=== PATIENT | male | born 1995 | race Caucasian/White ===

== ENCOUNTER → 2017-10-06 | Outpatient (CLI) | payer BC ==
[2017-10-06 09:09] LABS: BUN/CREATININE RATIO 17.4 (6.0-26.0); CALCIUM 9.5 mg/dL (8.4-10.2)
[2017-10-07 01:06] LABS: T3 TOTAL 140 ng/dL (87-178)
== END ==
LOC: LAB 08:10
PROVIDERS: Nurse Practitioner Family
DX: R53.81 Other malaise (principal); E66.01 Morbid (severe) obesity due to excess calories